=== PATIENT | male | born 1990 | race Caucasian/White ===

== ENCOUNTER 2017-06-16 14:10 | Emergency (ER) | payer OTHER ==
[~2017-06-16] VITALS: Ht 188 cm; Wt 101.5 kg
[~2017-06-16 14:10] MED LIST: ACET325T45 PO; ALBU8.5H5 INH; AZIT250T94 PO; CYCL-319 PO; HYDR-906 PO; IBUP800T25 PO; NAPR-260 PO; PRED20TA PO; UDROBAC PO
[2017-06-16 14:14] VITALS: Ht 188 cm; Wt 101.5 kg
[2017-06-16] MEDS ORDERED: IBUPROFEN 600 MG TAB PO ONE (15:30)
--- NOTE | 2017-06-16 15:35 | ERD ---
ER Documentation Chief Complaint Date/Time DATE: 06/16/17 TIME: 15:33 Chief Complaint 7/10 left foot pain x last night dropped weight on it HPI 27-year-old male complains of left-sided foot pain that occurred yesterday after dropping a 25 pound weight on it. He complains of 7 out of 10 pain that is sharp, just below the first toe, associated with bruising, and achy pain is worse with walking. He has not tried anything for the pain so far. He denies paresthesias or weakness. ROS All systems reviewed and are negative except as per history of present illness. Medications Home Meds Active Scripts Ibuprofen* (Motrin*) 600 Mg Tab, 600 MG PO Q6, #30 TAB Prov:GELY CAMACHO PA-C 06/16/17 Cyclobenzaprine Hcl* (Cyclobenzaprine Hcl*) 10 Mg Tablet, 10 MG PO TID, #15 TAB Prov:AAKASH LUJAN PA-C 07/17/16 Naproxen* (Naprosyn*) 500 Mg Tablet, 500 MG PO BID Y for PAIN AND/OR INFLAMMATION, #30 TAB Prov:AAKASH LUJAN PA-C 07/17/16 Hydrocodone/Acetaminophen ([place] 5-325 Tablet) 1 Each Tablet, 1 TAB PO Q6H Y for PAIN, #7 TAB Prov:AAKASH LUJAN PA-C 07/17/16 Prednisone* (Prednisone*) 20 Mg Tab, 40 MG PO DAILY for 4 Days, TAB Prov:CARRIE VARMA NP 03/15/16 Azithromycin* (Zithromax*) 250 Mg Tablet, 250 MG PO .ZPACK DIRECTED, #5 TAB TAKE 500 MG (2 TABS) THE FIRST DAY THEN 250 MG (1 TAB) DAYS 2-5 Prov:CARRIE VARMA NP 03/15/16 Prednisone* (Prednisone*) 20 Mg Tab, 20 MG PO BID for 4 Days, TAB Prov:GELY CAMACHO PA-C 07/22/15 Albuterol Sulfate* (Albuterol Sulfate* HFA) 8.5 Gm Hfa.aer.ad, 1-2 PUFF INH Q4 Y for SHORTNESS OF BREATH, #1 EA Prov:GELY CAMACHO PA-C 07/22/15 Acetaminophen* (Acetaminophen*) 325 Mg Tablet, 650 MG PO Q4H Y for PAIN AND OR ELEVATED TEMP, #20 TAB Prov:OBED VERA DO 07/17/15 Ibuprofen* (Ibuprofen*) 800 Mg Tab, 800 MG PO Q6H Y for PAIN, #14 TAB Prov:OBED VERA DO 07/17/15 Guaifenesin-Codeine Phosphate* (Robitussin* AC) 5 Ml Syrup, 10 ML PO Q4H Y for COUGH, #8 OZ Prov:OBED VERA DO 07/17/15 Azithromycin* (Zithromax*) 250 Mg Tablet, 250 MG PO .ZPACK DIRECTED, #6 TAB TAKE 500 MG (2 TABS) THE FIRST DAY THEN 250 MG (1 TAB) DAYS 2-5 Prov:OBED VERA DO 07/17/15 Allergies Allergies: Coded Allergies: No Known Allergy (Unverified , 06/16/17) PMhx/Soc History of Surgery: No Hx Neurological Disorder: No Hx Respiratory Disorders: Yes (asthma) Hx Cardiac Disorders: No Hx Psychiatric Problems: No Hx Miscellaneous Medical Probl: Yes (CERVICAL DISK BULDGE) Hx Alcohol Use: No Hx Substance Use: No Hx Tobacco Use: No Physical Exam Vitals Vital Signs Date Time Temp Pulse Resp B/P Pulse Ox O2 Delivery O2 Flow Rate FiO2 06/16/17 14:14 97.8 79 18 147/66 98 Physical Exam General: Well-developed, well-nourished. The patient appears in no acute distress. HEENT: Head is normocephalic, atraumatic. No scleral icterus. Neck: Supple. Nontender. Lungs: Clear to auscultation. Normal air movement. Heart: Regular rate and rhythm. S1 and S2 are normal. No murmurs, gallops, or rubs. Abdomen: Nondistended. Extremities: Ecchymosis and swelling, with bony tenderness over the first metatarsal of the left foot. Capillary refill less than 2 seconds. Nailbed is intact. Sensation distally intact Neurologic: Alert and oriented 3. No focal deficits. Normal speech and gait. Skin: Normal turgor. No rash or lesions. Results 24 hrs Current Medications Medications (Trade) Dose Ordered Sig/Glory Route PRN Reason Start Time Stop Time Status Last Admin Dose Admin Ibuprofen (Motrin) 600 mg ONCE ONCE PO 8/3/17 15:30 06/16/17 15:31 DC 06/16/17 15:47 DIAGNOSTIC IMAGING REPORT Patient: ROBERTO CARLOS SULLIVAN : 1990 Age: 27 Sex: M MR #: [id number] DOS: 06/16/17 1513 Ordering MD: GELY CAMACHO PA-C Location: [facility] Room/Bed: PROCEDURE: XR Foot. CLINICAL INDICATION: Pain TECHNIQUE: AP, lateral and oblique views of the left foot was obtained. The images were reviewed on a PACS workstation. COMPARISON: None. FINDINGS: The bones of the foot appear intact, with no evidence of fracture, dislocation, or subluxation. The joint spaces are preserved. The bone mineralization is normal. There is soft tissue swelling in the dorsum of the left foot. RPTAT: AA IMPRESSION: Soft tissue swelling with no acute fracture. .George Tsang MD, MD Date Time Electronically viewed and signed by .George Tsang MD, MD on 06/16/2017 15: 49 .S/ CC: GELY CAMACHO PA-C Procedures/MDM ED course: Patient was seen and evaluated, he was given ibuprofen for pain, x-rays of the left foot were obtained. Patient's left foot was placed in a postop shoe and placed in crutches to be weight bearing as tolerated. MDM: 27-year-old male comes in with left foot pain after dropping a 25 pound weight, there is a contusion and no fracture. X-rays are negative. Patient is neurovascularly intact and stable to be discharged. Departure Diagnosis: Primary Impression: Injury of foot Condition: Good GELY CAMACHO PA-C Jun 16, 2017 15:35
--- NOTE | 2017-06-16 15:49 | RADRPT ---
PROCEDURE: XR Foot. CLINICAL INDICATION: Pain TECHNIQUE: AP, lateral and oblique views of the left foot was obtained. The images were reviewed on a PACS workstation. COMPARISON: None. FINDINGS: The bones of the foot appear intact, with no evidence of fracture, dislocation, or subluxation. The joint spaces are preserved. The bone mineralization is normal. There is soft tissue swelling in the dorsum of the left foot. RPTAT: AA IMPRESSION: Soft tissue swelling with no acute fracture. .George Tsang MD, MD Date Time Electronically viewed and signed by .George Tsang MD, on 06/16/2017 15:49 .S/
[2017-06-16] MEDS ORDERED: IBUP-1542 PO (15:54)
== END 2017-06-16 16:06 | disposition home or self-care (01) ==
LOC: FTE 14:10
DX: S99.922A Unspecified injury of left foot, initial encounter (principal); J45.909 Unspecified asthma, uncomplicated; W20.8XXA Other cause of strike by thrown, projected or falling object, initial encounter; Y92.9 Unspecified place or not applicable
CPT/HCPCS: 73630; Z7502; Z7610

== ENCOUNTER 2017-07-12 14:42 | Emergency (ER) | payer OTHER ==
[~2017-07-12] VITALS: Wt 98.6 kg
[~2017-07-12 14:42] MED LIST changes: +IBUP-1542 PO
[2017-07-12] MEDS ORDERED: ALBUTEROL 0.083% (NEB) 2.5 MG/3 ML AMP NEB STA (15:49)
[2017-07-12] MEDS ORDERED: DEXAMETHASONE 10 MG/ML 1 ML INJ IM STA (15:49)
--- NOTE | 2017-07-12 16:16 | RADRPT ---
PROCEDURE: Chest x-ray CLINICAL INDICATION: Asthma exacerbation TECHNIQUE: Chest single view COMPARISON: 03/15/2016 FINDINGS: The heart is normal in size. The pulmonary vessels are normal in caliber. The lungs are clear. Th e costophrenic angles are sharp. The visualized bony thorax is unremarkable. IMPRESSION: No acute cardiopulmonary disease. RPTAT: HH .Elías Murillo MD, Date Time Electronically viewed and signed by .Elías Murillo MD, MD on 07/12/2017 16:16 .W/
[2017-07-12] MEDS ORDERED: GUAI118L22 PO (16:34)
[2017-07-12] MEDS ORDERED: ALBUTEROL 0.083% (NEB) 2.5 MG/3 ML AMP HHN STA (16:45)
[2017-07-12 17:49] VITALS: BP 118/60; PULSE 80; RESP 20; TEMP 98
--- NOTE | 2017-07-12 21:52 | ERD ---
ER Documentation Chief Complaint Date/Time DATE: 07/12/17 TIME: 21:48 Chief Complaint cough, cwp w cough, phlegm, wheezing, irritated eyes HPI This is a 27-year-old male presenting to emergency department for cough, wheezing, chest wall pain 1 week. Patient states he has a history of asthma but does not use an inhaler. Patient states he has a productive cough with clear sputum. Patient has wheezing that is worse at night. Patient has chest wall pain that is reproducible with cough. Patient denies any fevers or chills at home. No shortness breath or difficulty breathing. ROS All systems reviewed and are negative except as per history of present illness. Medications Home Meds Active Scripts Guaifenesin/Codeine Phosphate (CHERATUSSIN AC SYRUP) 118 Ml Liquid, 10 ML PO Q6H Y for COUGH, #118 ML Prov:KIERA CRUZ NP 07/12/17 Ibuprofen* (Motrin*) 600 Mg Tab, 600 MG PO Q6, #30 TAB Prov:GELY CAMACHO PA-C 06/16/17 Cyclobenzaprine Hcl* (Cyclobenzaprine Hcl*) 10 Mg Tablet, 10 MG PO TID, #15 TAB Prov:AAKASH LUJAN PA-C 07/17/16 Naproxen* (Naprosyn*) 500 Mg Tablet, 500 MG PO BID Y for PAIN AND/OR INFLAMMATION, #30 TAB Prov:AAKASH LUJAN PA-C 07/17/16 Hydrocodone/Acetaminophen ([place] 5-325 Tablet) 1 Each Tablet, 1 TAB PO Q6H Y for PAIN, #7 TAB Prov:AAKASH LUJAN PA-C 07/17/16 Prednisone* (Prednisone*) 20 Mg Tab, 40 MG PO DAILY for 4 Days, TAB Prov:CARRIE VARMA NP 03/15/16 Azithromycin* (Zithromax*) 250 Mg Tablet, 250 MG PO .CalPACK DIRECTED, #5 TAB TAKE 500 MG (2 TABS) THE FIRST DAY THEN 250 MG (1 TAB) DAYS 2-5 Prov:CARRIE VARMA NP 03/15/16 Prednisone* (Prednisone*) 20 Mg Tab, 20 MG PO BID for 4 Days, TAB Prov:GELY CAMACHO PA-C 9/8/15 Albuterol Sulfate* (Albuterol Sulfate* HFA) 8.5 Gm Hfa.aer.ad, 1-2 PUFF INH Q4 Y for SHORTNESS OF BREATH, #1 EA Prov:GELY CAMACHO PA-C 07/22/15 Acetaminophen* (Acetaminophen*) 325 Mg Tablet, 650 MG PO Q4H Y for PAIN AND OR ELEVATED TEMP, #20 TAB Prov:[facility] 07/17/15 Ibuprofen* (Ibuprofen*) 800 Mg Tab, 800 MG PO Q6H Y for PAIN, #14 TAB Prov:[facility] 07/17/15 Guaifenesin-Codeine Phosphate* (Robitussin* AC) 5 Ml Syrup, 10 ML PO Q4H Y for COUGH, #8 OZ Prov:[facility] 07/17/15 Azithromycin* (Zithromax*) 250 Mg Tablet, 250 MG PO .ZPACK DIRECTED, #6 TAB TAKE 500 MG (2 TABS) THE FIRST DAY THEN 250 MG (1 TAB) DAYS 2-5 Prov:[facility] 07/17/15 Allergies Allergies: Coded Allergies: No Known Allergy (Unverified , 06/16/17) PMhx/Soc History of Surgery: No Anesthesia Reaction: No Hx Neurological Disorder: No Hx Respiratory Disorders: Yes (asthma) Hx Cardiac Disorders: No Hx Psychiatric Problems: No Hx Miscellaneous Medical Probl: Yes (CERVICAL DISK BULDGE) Hx Alcohol Use: No Hx Substance Use: No Hx Tobacco Use: No Smoking Status: Never smoker Physical Exam Vitals Vital Signs Date Time Temp Pulse Resp B/P Pulse Ox O2 Delivery O2 Flow Rate FiO2 07/12/17 17:49 98.0 80 20 118/60 96 07/12/17 17:03 81 18 96 21 07/12/17 16:08 77 18 96 21 07/12/17 14:50 99.0 88 20 128/65 95 Physical Exam Const: No acute distress, alert Head: Atraumatic Eyes: Normal Conjunctiva ENT: Normal External Ears, Nose and Mouth.No erythema or exudates posterior pharynx. No peritonsillar abscess. Non-kissing tonsils. Neck: Full range of motion..~ No meningismus. Resp: Clear to auscultation bilaterally. No wheezing, rhonchi or crackles. No stridor or labored breathing. Patient is talking in complete sentences. Cardio: Regular rate and rhythm, no murmurs Abd: Soft, non tender, non distended. Normal bowel sounds Skin: No petechiae or rashes Back: No midline or flank tenderness Ext: No cyanosis, or edema Neur: Awake and alert Psych: Normal Mood and Affect Results 24 hrs Current Medications Medications (Trade) Dose Ordered Sig/Glory Route PRN Reason Start Time Stop Time Status Last Admin Dose Admin Albuterol (Proventil 0.083% (Neb)) 5 mg ONCE STAT NEB 07/12/17 15:49 07/12/17 15:50 DC 07/12/17 16:05 Dexamethasone (Decadron) 10 mg ONCE STAT IM 07/12/17 15:49 07/12/17 15:50 DC 07/12/17 16:05 Albuterol (Proventil 0.083% (Neb)) 5 mg ONCE STAT HHN 07/12/17 16:45 07/12/17 16:48 DC 07/12/17 17:02 Procedures/[place] [address] Radiology Main Line: [phone] DIAGNOSTIC IMAGING REPORT Patient: ROBERTO CARLOS SULLIVAN : 1990 Age: 27 Sex: M MR #: [id number] DOS: 07/12/17 1549 Ordering MD: KIERA CRUZ NP Location: [facility] Room/Bed: PROCEDURE: Chest x-ray CLINICAL INDICATION: Asthma exacerbation TECHNIQUE: Chest single view COMPARISON: 03/15/2016 FINDINGS: The heart is normal in size. The pulmonary vessels are normal in caliber. The lungs are clear. The costophrenic angles are sharp. The visualized bony thorax is unremarkable. IMPRESSION: No acute cardiopulmonary disease. MDM: This is a 27-year-old male resenting to emergency department with productive cough, wheezing, chest wall pain 1 week. Patient's physical exam is unremarkable. Patient is talking in complete sentences. No signs or symptoms of respiratory distress. Oxygen saturation 95% on room air. Patient is afebrile upon arrival to ED. Chest x-ray reviewed by radiologist is unremarkable. Patient given albuterol nebulizer treatment and Decadron 10 mg IM. Upon reassessment, patient states he is still not feeling better. Patient given another albuterol nebulizer treatment and upon reassessment states he is now feeling better. Vital signs are stable. Oxygen saturation remains above 95 % on room air. No labored breathing. No stridor. Low suspicion for pneumonia, pleural effusion, pneumothorax or acute ND. Differential diagnosis includes but not limited to URI, influenza, otitis media , otitis externa, asthma exacerbation, croup, bronchitis, bronchiolitis and costochondritis. Patient is appropriate for outpatient management and will be given prescription for Cheratussin AC syrup, Proair inhaler and loratadine. Instructed patient to follow-up with primary care provider in the next 2-3 days for reassessment and additional management. Return to ED for any high fever, chest pain, difficulty breathing, shortness breath, wheezing, vomiting, diarrhea, abdominal pain or any new or worsening symptoms. Patient verbalizes understanding. All questions answered at discharge. Departure Diagnosis: Primary Impression: URI (upper respiratory infection) URI type: unspecified viral URI Qualified Code: J06.9 - Viral upper respiratory tract infection Condition: Stable Patient Instructions: Uri, Viral W/ Wheezing (Adult) Referrals: [facility] YOU HAVE RECEIVED A MEDICAL SCREENING EXAM AND THE RESULTS INDICATE THAT YOU DO NOT HAVE A CONDITION THAT REQUIRES URGENT TREATMENT IN THE EMERGENCY DEPARTMENT. FURTHER EVALUATION AND TREATMENT OF YOUR CONDITION CAN WAIT UNTIL YOU ARE SEEN IN YOUR DOCTORS OFFICE WITHIN THE NEXT 1-2 DAYS. IT IS YOUR RESPONSIBILITY TO MAKE AN APPOINTMENT FOR FOLOW-UP CARE. IF YOU HAVE A PRIMARY DOCTOR --you should call your primary doctor and schedule an appointment IF YOU DO NOT HAVE A PRIMARY DOCTOR YOU CAN CALL OUR PHYSICIAN REFERRAL HOTLINE AT IF YOU CAN NOT AFFORD TO SEE A PHYSICIAN YOU CAN CHOSE FROM THE FOLLOWING [facility] [address] [facility] [address] [facility]. [facility] [address] [facility] [address] [facility] [address] [facility] [address] [facility]. [facility] YOU HAVE RECEIVED A MEDICAL SCREENING EXAM AND THE RESULTS INDICATE THAT YOU DO NOT HAVE A CONDITION THAT REQUIRES URGENT TREATMENT IN THE EMERGENCY DEPARTMENT. FURTHER EVALUATION AND TREATMENT OF YOUR CONDITION CAN WAIT UNTIL YOU ARE SEEN IN YOUR DOCTORS OFFICE WITHIN THE NEXT 1-2 DAYS. IT IS YOUR RESPONSIBILITY TO MAKE AN APPOINTMENT FOR FOLOW-UP CARE. IF YOU HAVE A PRIMARY DOCTOR --you should call your primary doctor and schedule and appointment IF YOU DO NOT HAVE A PRIMARY DOCTOR YOU CAN CALL OUR PHYSICIAN REFERRAL HOTLINE AT . IF YOU CAN NOT AFFORD TO SEE A PHYSICIAN YOU CAN CHOSE FROM THE FOLLOWING [facility] INSTITUTIONS: [facility] [address] [place] [address] [facility] [address] [place] [address] [facility] [address] [place] [address] Additional Instructions: Call your primary care doctor TOMORROW for an appointment during the next 2-3 days.See the doctor sooner or return here if your condition worsens before your appointment time. Return to ED for any high fever, chest pain, difficulty breathing, shortness breath, wheezing, vomiting, diarrhea, abdominal pain or any new or worsening symptoms. KIERA CRUZ NP Jul 12, 2017 21:52
== END 2017-07-12 17:50 | disposition home or self-care (01) ==
LOC: FTE 14:42
DX: J06.9 Acute upper respiratory infection, unspecified (principal); J45.909 Unspecified asthma, uncomplicated
CPT/HCPCS: 71010; 94640; 94664; 96372; J1100; Z7502; Z7610

== ENCOUNTER 2017-11-03 19:38 | Emergency (ER) | END 2017-11-03 22:18 | disposition home or self-care (01) ==

== ENCOUNTER 2018-05-28 17:05 | Emergency (ER) | END 2018-05-28 18:53 | disposition home or self-care (01) ==

== ENCOUNTER 2018-10-23 19:58 | Emergency (ER) | END 2018-10-24 00:38 | disposition home or self-care (01) ==

== ENCOUNTER 2019-04-06 20:43 | Emergency (ER) | payer SELFPAY ==
[~2019-04-06] VITALS: Ht 188 cm; Wt 100.0 kg
[~2019-04-06 20:43] MED LIST changes: +ACET325T33 PO; +AZIT250T PO; -AZIT250T94 PO; +CIPR500T4 PO; +CODE5LIQ2 PO; -CYCL-319 PO; +CYCL10TA7 PO; +GUAI118L22 PO; +HYDR-4011 PO; -HYDR-906 PO; +IBUP-1545 PO; -IBUP800T25 PO; -NAPR-260 PO; +NAPR-688 PO; +NAPR-985 PO; +ONDA8TAB14 PO; +PHEN-538 PO; -UDROBAC PO
[2019-04-06 21:24] VITALS: BP 135/84; PULSE 83; RESP 18; Ht 188 cm; Wt 100.0 kg
[2019-04-07] MEDS ORDERED: BENZ200C68 PO (20:49)
[2019-04-07] MEDS ORDERED: LEVO5TAB28 PO (20:49)
== END 2019-04-07 01:00 | disposition left against medical advice (07) ==
LOC: FTE 20:43
DX: Z53.21 Procedure and treatment not carried out due to patient leaving prior to being seen by health care provider (principal)

== ENCOUNTER 2019-04-07 19:31 | Emergency (ER) | payer OTHER ==
[~2019-04-07] VITALS: Ht 188 cm; Wt 102.0 kg
[2019-04-07 19:33] VITALS: BP 130/67; PULSE 85; RESP 20; Ht 188 cm; Wt 102.0 kg
--- NOTE | 2019-04-07 19:56 | ERD ---
ER Documentation Chief Complaint Chief Complaint Cough x 1 month, productive cough x 2 weeks HPI 29-year-old male presenting to the emergency department with complaints of intermittent productive cough for the past 3 weeks. Symptoms are worse in the morning. He also reports nasal congestion. He has been using [id number] allergy medication without significant relief. He does endorse night sweats intermittently. He denies any hemoptysis, fevers, chills, exposure to person with known TB, or other symptoms at this time. ROS All systems reviewed and are negative except as per history of present illness. Medications Home Meds Active Scripts Benzonatate* (Benzonatate*) 200 Mg Capsule, 200 MG PO TID PRN for COUGH, #15 CAP Prov:GUILLAUME LOPEZ PA-C 04/07/19 Levocetirizine Dihydrochloride (Xyzal) 5 Mg Tablet, 5 MG PO QPM, #30 TAB Prov:GUILLAUME LOPEZ PA-C 04/07/19 Phenazopyridine Hcl* (Pyridium*) 200 Mg Tab, 200 MG PO TID PRN for URINARY PAIN, #6 TAB Prov:ERIC MILLIGAN NP 10/24/18 Ciprofloxacin Hcl* (Ciprofloxacin Hcl*) 500 Mg Tablet, 500 MG PO BID for 10 D ays, TAB Prov:ERIC MILLIGAN NP 10/24/18 Cyclobenzaprine Hcl* (Cyclobenzaprine Hcl*) 10 Mg Tablet, 10 MG PO Q8 PRN for MUSCLE SPASMS, #30 TAB Prov:SAGAR YEH PA-C 05/28/18 Naproxen* (Naproxen*) 500 Mg Tablet, 500 MG PO BID PRN for PAIN AND OR ELEVATED TEMP, #30 TAB Prov:SAGAR YEHC 05/28/18 Acetaminophen* (Tylenol*) 325 Mg Tablet, 2 TAB PO Q6 PRN for PAIN AND OR ELEVATED TEMP, #20 TAB Prov:SAGAR YEH PA-C 11/03/17 Ondansetron (Ondansetron Odt) 8 Mg Tab.rapdis, 8 MG PO Q6H PRN for NAUSEA AND/OR VOMITING, #10 TAB Prov:SAGAR YEHC 11/03/17 Guaifenesin/Codeine Phosphate (CHERATUSSIN AC SYRUP) 118 Ml Liquid, 10 ML PO Q6H PRN for COUGH, #118 ML Prov:KIERA CRUZ NP 07/12/17 Ibuprofen* (Motrin*) 600 Mg Tab, 600 MG PO Q6, #30 TAB Prov:GELY CAMACHO PA-C 06/16/17 Cyclobenzaprine Hcl* (Cyclobenzaprine Hcl*) 10 Mg Tablet, 10 MG PO TID, #15 TAB Prov:AAKASH LUJAN PA-C 07/17/16 Naproxen* (Naprosyn*) 500 Mg Tablet, 500 MG PO BID PRN for PAIN AND/OR INFLAMMATION, #30 TAB Prov:AAKASH LUJAN PA-C 07/17/16 Hydrocodone/Acetaminophen ([place] 5-325 Tablet) 1 Each Tablet, 1 TAB PO Q6H PRN for PAIN, #7 TAB Prov:AAKASH LUJAN PA-C 07/17/16 Prednisone* (Prednisone*) 20 Mg Tab, 40 MG PO DAILY for 4 Days, TAB Prov:CARRIE VARMA NP 03/15/16 Azithromycin* (Zithromax*) 250 Mg Tablet, 250 MG PO .CalPACK DIRECTED, #5 TAB TAKE 500 MG (2 TABS) THE FIRST DAY THEN 250 MG (1 TAB) DAYS 2-5 Prov:CARRIE VARMA NP 03/15/16 Prednisone* (Prednisone*) 20 Mg Tab, 20 MG PO BID for 4 Days, TAB Prov:GELY CAMACHO PA-C 07/22/15 Albuterol Sulfate* (Albuterol Sulfate* HFA) 8.5 Gm Hfa.aer.ad, 1-2 PUFF INH Q4 PRN for SHORTNESS OF BREATH, #1 EA Prov:GELY CAMACHO PA-C 07/22/15 Acetaminophen* (Acetaminophen*) 325 Mg Tablet, 650 MG PO Q4H PRN for PAIN AND OR ELEVATED TEMP, #20 TAB Prov:OBED VERA DO 07/17/15 Ibuprofen* (Ibuprofen*) 800 Mg Tab, 800 MG PO Q6H PRN for PAIN, #14 TAB Prov:OBED VERA DO 07/17/15 Guaifenesin-Codeine Phosphate* (Robitussin* AC) 5 Ml Syrup, 10 ML PO Q4H PRN for COUGH, #8 OZ Prov:OBED VERA DO 07/17/15 Azithromycin* (Zithromax*) 250 Mg Tablet, 250 MG PO .ZPACK DIRECTED, #6 TAB TAKE 500 MG (2 TABS) THE FIRST DAY THEN 250 MG (1 TAB) DAYS 2-5 Prov:OBED VERA DO 07/17/15 Allergies Allergies: Coded Allergies: No Known Allergy (Unverified , 06/16/17) PMhx/Soc History of Surgery: Yes (right knee) Anesthesia Reaction: No Hx Neurological Disorder: No Hx Respiratory Disorders: No Hx Cardiac Disorders: No Hx Psychiatric Problems: No Hx Miscellaneous Medical Probl: Yes (low testoterone, UTI) Hx Alcohol Use: Yes (occ) Hx Substance Use: No Hx Tobacco Use: No Smoking Status: Never smoker Physical Exam Vitals Vital Signs Date Temp Pulse Resp B/P (MAP) Pulse Ox O2 O2 Flow FiO2 Time Delivery Rate 04/07/19 98.6 85 20 130/67 97 19:33 (88) Physical Exam Const: No acute distress Head: Atraumatic Eyes: Normal Conjunctiva ENT: Normal External Ears, Nose and Mouth. Neck: Full range of motion. No meningismus. Resp: Clear to auscultation bilaterally Cardio: Regular rate and rhythm, no murmurs Abd: Soft, non tender, non distended. Normal bowel sounds Skin: No petechiae or rashes Back: No midline or flank tenderness Ext: No cyanosis, or edema Neur: Awake and alert Psych: Normal Mood and Affect Results 24 hrs [place] [address] Radiology Main Line: [phone] DIAGNOSTIC IMAGING REPORT Patient: ROBERTO CARLOS SULLIVAN : 1990 Age: 29 Sex: M MR #: [id number] DOS: 04/07/19 0000 Ordering MD: GUILLAUME LOPEZ PA-C Location: [facility] Room/Bed: PROCEDURE: XR Chest. CLINICAL INDICATION: Cough for 3 weeks. TECHNIQUE: Two views. Frontal and lateral. COMPARISON: 07/12/2017. FINDINGS: The lungs are clear. There is an azygos fissure, a normal variant. The heart size is normal. There is no pleural effusion. There is no pneumothorax. IMPRESSION: 1. Azygos fissure, a normal variant. 2. Otherwise unremarkable chest radiograph. RPTAT: QQ .Curly Smart MD, MD Date Time Electronically viewed and signed by .Curly Smart MD, on 04/07/2019 20:36 .R/ CC: GUILLAUME LOPEZ PA-C [phone] Procedures/MDM 29-year-old male presenting to the emergency department with complaints of cough. Chest x-ray was negative for any abnormalities and the full report interpreted by the radiologist may be viewed above. The patient's clinical presentation is very consistent with an acute viral syndrome. The patient does not exhibit any clinical signs or symptoms concerning for serious bacterial infection or systemic illness. Based on history and clinical exam findings the patient does not appear to have evidence of pneumonia, strep pharyngitis, urinary tract infection, bacteremia, sepsis, or meningitis. For these reasons I do not believe it is necessary to obtain laboratory testing or further diagnostic imaging. I believe it would be appropriate for symptom co ntrol, and close outpatient primary care follow-up. Based on patient's history of present illness and physical examination the decision was made to discharge. There is no evidence of life threatening injuries or illnesses at this time. On re-examination, patient resting in no distress, stable vital signs, reports feeling better and safe for discharge with outpatient follow up with PMD in 1-2 days. Patient given return precautions. Departure Diagnosis: Primary Impression: Cough Condition: Fair Patient Instructions: Cough, Chronic, Uncertain Cause, (Adult) Additional Instructions: Follow up with your PCP within the next 1-3 days for a repeat evaluation. If you require a referral to a specialist, your Primary Care Provider may be able to provide this for you. In most patient cases, a referral is not required. If you have further questions regarding this matter, please ask your Primary Care Provider. Return the the emergency department immediately if symptoms worsen or change. If you have any questions regarding medications, ask your pharmacist or us before you leave. If any adverse reactions, occur while taking your medications, discontinue the treatment and return to the emergency department immediately. If any new or worsening symptoms, uncontrolled fevers, or other unexplained symptoms occur, return to the emergency department immediately. Take your medications as directed, and complete the entire course of treatment. GUILLAUME LOPEZ PA-C April 07, 2019 19:56
[2019-04-07] MEDS ORDERED: BENZ200C68 PO (20:49)
[2019-04-07] MEDS ORDERED: LEVO5TAB28 PO (20:49)
== END 2019-04-07 20:55 | disposition home or self-care (01) ==
LOC: FTE 19:31
DX: R05 Cough (principal)
CPT/HCPCS: 71046; Z7502; 99283

== ENCOUNTER 2019-07-17 18:56 | Emergency (ER) | payer OTHER ==
[~2019-07-17] VITALS: Ht 188 cm; Wt 102.7 kg
[~2019-07-17 18:56] MED LIST changes: +BENZ200C68 PO; +LEVO5TAB28 PO
[2019-07-17 19:09] VITALS: Ht 188 cm; Wt 102.7 kg
[2019-07-17 21:58] VITALS: BP 134/67; PULSE 78; RESP 20
== END 2019-07-17 21:59 | disposition home or self-care (01) ==
LOC: FTE 18:56
DX: S49.92XA Unspecified injury of left shoulder and upper arm, initial encounter (principal); X58.XXXA Exposure to other specified factors, initial encounter; Y92.89 Other specified places as the place of occurrence of the external cause
CPT/HCPCS: 73030; Z7502